=== PATIENT | female | born 1995 | race Caucasian/White ===

== ENCOUNTER 2023-02-21 12:25 | Outpatient (REF) | payer SELFPAY ==
[2023-02-28 09:49] LABS: Mycoplasma hominis PCR Negative; Specimen Source vaginal
== END 2023-02-21 12:26 | disposition home or self-care (01) ==
LOC: LBN 12:25
PROVIDERS: Visit Provider Physician Assistant Medical
DX: N89.8 Other specified noninflammatory disorders of vagina (principal)
CPT/HCPCS: 87109; 87480; 87510; 87660